=== PATIENT | male | born 1940 | race Caucasian/White ===

== ENCOUNTER 2016-11-04 08:45 | Outpatient (CLI) | payer MEDICARE, OTHER ==
[~2016-11-04] VITALS: Ht 182.9 cm; Wt 91.4 kg
--- NOTE | ~2016-11-04 | CATH ---
Cardiac Diagnostic Report Demographics Patient Name MARLENY Gill Gender Male Date of 1940 Age 76 year(s) Patient Number [id number] Date of Study 11/04/2016 Visit Number [id number] Room Number G6399 [place] [id number] Ht 182.88 cm Wt 91.4 kg Referring Efstratiou Primary Physician Physician Sophie Ware Performing Efstratiou Secondary Physician Physician Sophie Mariscal MD Diagnostic Efstratiou Assisting Physician Physician Sophie Mariscal MD Interventional Physician Sleeper Cutter Physician Findings and Conclusions Diagnostic Findings and Conclusion Mild to moderate diffuse coronary artery disease. Unusual anatomy in that the large Ramus supplies the LV apex, the RCA supplies the PLB, and the circumflex supplies he PDA. Diagnostic Recommendations Medical treatment. Procedure Description The patient was brought to the diagnostic cardiac catheterization-EP laboratory in the fasting, non-sedated state. Informed consent was obtained in the written and verbal form after the risks and benefits were explained. The patient had no further questions and agreed to proceed. The planned puncture-incision site(s) were shaved and prepped with ChloraPrep and draped in the usual sterile manner. Conscious sedation, supplemental oxygen, and pain control medications were delivered by a registered nurse under physician guidance. Surface ECG rhythm, blood pressure measurement, and pulse oximetry were monitored throughout the procedure. Arterial access. The access site was infiltrated with lidocaine. The vessel was entered with the Seldinger technique. A sheath was advanced into the vessel and used for catheter placement. Selective left coronary angiography. A catheter was advanced into the left coronary vessel ostium under Fluoroscopic guidance. Contrast was injected by hand. Images were obtained in multiple projections. Selective right coronary angiography. A catheter was advanced into the right coronary vessel ostium under fluoroscopic guidance. Contrast was injected by hand. Images were obtained in multiple projections. Arterial artery hemostasis was achieved. The patient was transferred to a regular nursing floor via cart accompanied by a nurse. The patient left the laboratory in stable condition. Diagnostic Cath Status: Elective Procedure Procedure Type Diagnostic procedure:Angiography:, Coronary Angios Indications: Shortness of breath, Angina, Chest pain and CAD. The procedure was explained in detail to the patient. Risks, complications and alternative treatments were reviewed. Written consent was obtained. Medications Reviewed with Patient prior to Procedure. Angiographic Findings Dominance: Mixed Cardiac Arteries and Lesion Findings LAD: Lesion on Prox LAD: 20% stenosis . Lesion on 1st Dia% stenosis . LCx: PDA is supplied by the distal circumflex Lesion on Dist CX: 40% stenosis . Lesion on 1st [place]% stenosis . RCA: Supplies the PLB Lesion on Prox RCA: 20% stenosis . Ramus: Lesion on Ramus: 20% stenosis . Coronary Tree Procedure Data Procedure Date Date: 11/04/2016Start: 02:16 PMEnd: 02:46 PM Entry Locations - Retrograde Percutaneous access was performed through the Right Radial artery (Primary location). A 6 Fr sheath was inserted. Unsuccessful closure attempt was performed using: an R band. Hemostasis was successfully obtained using Mechanical Compression. Closure Comments: 14 cc of air in the R band. Procedure Medications Order and Administration + + +-------+-------+ !Time !Medication !Dosage !Route ! + + +-------+-------+ !11/04/2016 !Versed !1 mg !I.V. ! !02:13 PM ! ! ! ! + + +-------+-------+ !11/04/2016 !Fentanyl !25 mcg !I.V. ! !02:13 PM ! ! ! ! + + +-------+-------+ !11/04/2016 !PAE Radial Cocktail: Heparin 5000 units, ! !I.A. ! !02:18 PM !Nitroglycerin 200mcg, Verapamil 3 mg ! ! ! ! !(ACC_3) ! ! ! + + +-------+-------+ Devices Used - A6 Fr. BS JR 4 Diag. Catheterwas used for:Right coronary angiography.Unable to cannulate the vessel. - A6 Fr. MPB2 Catheterwas used for:Right coronary angiography.Unable to cannulate the vessel. - A6 Fr. Ultimate 1 Diag. Catheterwas used for:Left coronary angiography. - A6 Fr. JJ 3DRC Diag. Catheterwas used for:Right coronary angiography.Unable to cannulate the vessel. - A6 Fr. BS AR2 Diag. Catheterwas used for:Right coronary angiography. Contrast Material - Isovue 86407 ml Fluoroscopy Time: Diagnostic: 11:30 minutes. Total: 11:30 minutes. Fluoroscopy Dose: Diagnostic: 1298 mGy. Total: 1298 mGy. Estimated Blood Loss: 15 ml. Medical History Allergies - Codiene. Risk Factors The patient risk factors include:family history of premature CAD, last creatinine: 0.7 mg/dl, creatinine clearance: 117.88 ml/min and prior AR . Admission Data Admission Date: 11/04/2016 Admission Time: 08:45 AM Admit Source: Other Insurance Payors: Medicare. Admission Medications + +------+------+ + + + + !Medication !Dosage!Times !Last !Last !Administered !Comments ! ! ! !Per !Delivery !Delivery ! ! ! ! ! !Day !Date !Time ! ! ! + +------+------+ + + + + !Beta ! ! ! ! !Yes ! ! !Librado ! ! ! ! ! ! ! !(any) ! ! ! ! ! ! ! + +------+------+ + + + + Clinical Evaluation Leading to Procedure - The patient's CAD presentation was assessed as: Unstable angina. - The patient's anginal syndrome during the past two weeks was assessed as: Class II according to the [place] Cardiovascular Society Classification System (CCS). Anti-anginal medications were prescribed during the past two weeks. The medication is: Beta Blockers. Snapshots Hemodynamics Condition: Rest O2 Consumption: Estimated: 237.47Heart Rate: 59 bpm Pressures (mmHg) +-----+ + !Site !Pressure ! +-----+ + !AO !103/57 (78) ! +-----+ + !AO !112/55 (78) ! +-----+ + Shunts Oxygen Values O2 Capacity 187.68 O2 Consumption 237.47 Discharge Data Discharge Date: 11/04/2016 Hospital Status: Outpatient Signatures dtt: Berhane Durant dtd: 11/04/16 1416 Physician Self Edit
[~2016-11-04 08:45] MED LIST: JOINT ADVANTAGE PO; LOPRESSOR25 MG PO; VISION ADVANTAGE PO; [UNRECOGNIZED DRUG - CODE] PO; [UNRECOGNIZED DRUG - OTHER] PO; [UNRECOGNIZED DRUG - OTHER] PO
[2016-11-04 10:06] LABS: BASOPHIL # 0.1 K/uL (0.0-0.2); BASOPHIL % 0.8 %; EOSINOPHIL # 0.2 K/uL (0.0-0.5); EOSINOPHIL % 3.1 %; HEMATOCRIT 41.1 % (37.0-53.0); HEMOGLOBIN 13.8 g/dL (11.0-16.0); IMMATURE GRANULOCYTE % 0.2 %; LYMPHOCYTE # 1.3 K/uL (0.8-4.0); LYMPHOCYTE % 21.3 %; MCH 29.5 pg (27.0-34.0); MCHC 33.6 gm/dL (32.0-36.5); MCV 87.8 fl (83.0-98.0); MONOCYTE # 0.5 K/uL (0.0-1.0); MONOCYTE % 7.4 %; MPV 9.8 fl (9.4-12.4); NEUTROPHIL # (ANC) 4.2 K/uL (1.4-9.0); NEUTROPHIL % 67.2 %; NRBC % 0 /100WBC (0-0.00); PLATELET COUNT 184 K/uL (150-450); RBC 4.68 M/uL (3.50-5.50); RDW-CV 13.3 % (11.9-14.6); WBC 6.2 K/uL (4.0-11.0)
[2016-11-04 10:16] LABS: INR - (THERAPEUTIC) 1.03 (0.92-1.07); PROTIME 10.8 SECONDS (9.8-11.4)
[2016-11-04 10:23] LABS: ALBUMIN 3.3 gm/dL (3.5-5.0); ALK PHOS 40 IU/L (33-138); ALT 24 IU/L (12-78); ANION GAP 11.3 (10.0-19.0); AST 14 IU/L (10-40); BLOOD UREA NITROGEN 11 mg/dL (6-24); CALCIUM 9.3 mg/dL (8.5-10.5); CHLORIDE 109 mMol/L (96-110); CO2 25 mMol/L (22-32); CREATININE 0.7 mg/dL (0.6-1.3); POTASSIUM 4.3 mMol/L (3.7-5.1); SODIUM 141 mMol/L (135-145); TOTAL BILIRUBIN 0.7 mg/dL (0.0-1.5); TOTAL PROTEIN 6.7 g/dL (6.0-8.4)
== END 2016-11-04 18:07 | disposition disaster alternative care site (69) ==
LOC: GPOC 08:45 → GPCU 08:45 → GPOC 09:00
PROVIDERS: Internal Medicine Cardiovascular Disease
PROC: 4A023N6 Measurement of Cardiac Sampling and Pressure, Right Heart, Percutaneous Approach (ICD-10-PCS; principal; 2016-11-04)
PROC: B216YZZ Fluoroscopy of Right and Left Heart using Other Contrast (ICD-10-PCS; 2016-11-04)
DX: I25.119 Atherosclerotic heart disease of native coronary artery with unspecified angina pectoris (principal)
CPT/HCPCS: C1894; J1644; J2001; J2250; J3010; J7030

== ENCOUNTER → 2016-12-05 | Outpatient (CLI) | payer MEDICARE, OTHER ==
--- NOTE | ~2016-12-05 | ENPV ---
Vascular Lower Arterial Plethysmography Procedure Demographics Patient Name WEST FARMER Date of Study 12/05/2016 Patient Number [id number] Gender Male Date of 1940 Age 76 Visit Number [id number] Height Weight Number Room Number BSA BMI Referring Efstratiou Panayotis Interpreting Efstratiou Panayotis Physician A MD Physician A Physician Ordering Efstratiou Panayotis Tourist Guide Physician A Oven Laborer Linn Meehan RVT Conclusions Summary At rest: Ankle brachial index on the right is 1.2 no significant arterial disease at rest. Ankle brachial index on the left is 1.2 no significant arterial disease at rest. With exercise, the ankle brachial index did not drop more than 20% confirming the absence of significant peripheral arterial disease. Procedure Type of Study: Extremities Arteries:Lower Arterial Plethysmography, Ankle/Brachial Indicies. Indications for Study:Claudication. Appropriate Use Criteria:8 Allergies - Codiene. Patient Status:Routine. Study Location:Vascular Lab. Technical Quality:Adequate visualization. Velocities are measured in cm/s ; Diameters are measured in cm Pressures + +----+ +---------+--------+ + + ! ! !Right ! !Left ! ! ! + +----+ +---------+--------+ + + !Location ! !Pressure !Ratio ! !Pressure !Ratio ! + +----+ +---------+--------+ + + !Ankle PT ! !163 !1.24 ! !145 !1.11 ! + +----+ +---------+--------+ + + !DP ! !137 !1.05 ! !156 !1.19 ! + +----+ +---------+--------+ + + - Brachial Pressure:Right: 123.Left:131. - [place]:Right: 1.24.Left: 1.19. Post Exercise + +----+ +---------+--------+ + + ! ! !Right ! !Left ! ! ! + +----+ +---------+--------+ + + !Location ! !Pressure !Ratio ! !Pressure !Ratio ! + +----+ +---------+--------+ + + !MICROBIOLOGY LAB ASSISTANT ! !178 !1.31 ! !132 !0.97 ! + +----+ +---------+--------+ + + - Brachial Pressure:Left:136. - [place]:Right: 1.31.Left: 0.97. Signature dtt: Berhane Durant dtd: 12/05/16 [facility] Physician Self Edit
== END | disposition disaster alternative care site (69) ==
LOC: GCAR 13:23
DX: I70.213 Atherosclerosis of native arteries of extremities with intermittent claudication, bilateral legs (principal)